=== PATIENT | female | born 1970 | race Caucasian/White ===

== ENCOUNTER 2021-05-31 21:38 | Emergency (ER) | payer MEDICARE, MEDICAID ==
--- NOTE | 2021-05-31 22:13 | EDM.PDOC ---
ED HPI GENERAL MEDICAL PROBLEM - General Chief Complaint: Abdominal Pain Stated Complaint: R SIDE ABDOMINAL PAIN Time Seen by Provider: 05/31/21 22:13 - History of Present Illness INITIAL COMMENTS - FREE TEXT/NARRATIVE: 50-year-old female presents the emergency room with abdominal pain. Patient has had several days a worsening abdominal pain. The pain seems to be in the right side of her abdomen. She is quite nauseated minimal vomiting she said diarrhea with this. Yesterday she attempted to go to [place] to have Thanksgiving with the family. Heading down there they stopped and emergency room she was tested for Covid found to be negative her evaluation of the emergency room was unrevealing I am not entirely sure exactly how big of the work-up she had done. Pain is mostly on the right side. She had a history of a cholecystectomy she still has her appendix. She denies any blood in her stool but has had loose stools. Right Abdomen Pain Score (Numeric/FACES): 10 - Related Data Allergies Allergy/AdvReac Type Severity Reaction Status Date / Time caffeine Allergy Severe Nausea and Verified 05/31/21 22:03 Vomiting codeine Allergy Severe Hives Verified 05/31/21 22:03 egg Allergy Severe Hives Verified 05/31/21 22:03 morphine Allergy Severe Hives Verified 05/31/21 22:03 Home Meds: Home Meds ARIPiprazole [Aripiprazole] 0 mg PO DAILY 05/31/21 [History] FLUoxetine HCl [Prozac] 40 mg PO DAILY 05/31/21 [History] Omeprazole 20 mg PO DAILY 05/31/21 [History] Pregabalin [Lyrica] 0 mg PO DAILY 05/31/21 [History] ED ROS GENERAL - Review of Systems Review Of Systems: See Below Constitutional: Reports: No Symptoms HEENT: Reports: No Symptoms Respiratory: Reports: No Symptoms Cardiovascular: Reports: No Symptoms GI/Abdominal: Reports: Abdominal Pain, Anorexia, Diarrhea, Decreased Appetite, Nausea, Vomiting. Denies: Black Stool, Bloody Stool : Reports: No Symptoms Musculoskeletal: Reports: No Symptoms Skin: Reports: No Symptoms Neurological: Reports: No Symptoms Psychiatric: Reports: No Symptoms ED EXAM, GENERAL - Physical Exam Exam: See Below Exam Limited By: No Limitations General Appearance: Alert, Moderate Distress (From anxiety and pain) Head: Atraumatic, Normocephalic Neck: Normal Inspection, Supple, Non-Tender, Full Range of Motion Respiratory/Chest: No Respiratory Distress, Lungs Clear, Normal Breath Sounds Cardiovascular: Regular Rate, Rhythm, No Edema, No Murmur GI/Abdominal: Normal Bowel Sounds, Soft, Tender (Heart tenderness on the right side she has rebound tenderness on the left radiating to the right.) Back Exam: Normal Inspection, CVA Tenderness (L), CVA Tenderness (R) #1 Interpretation EKG Date: 05/31/21 Rhythm: Other (Sinus arrhythmia) [place]: Normal P-Wave: Present QRS: Normal ST-T: Other (Lateral lead ST depression nondiagnostic) QT: Normal Comparison: NA - No Prior EKG EKG Interpretation Comments: Abnormal EKG Course - Vital Signs Last Recorded V/S: Last Vital Signs Temp 36.4 C 05/31/21 21:56 Pulse 52 L 05/31/21 21:56 Resp 20 05/31/21 21:56 BP 155/79 H 05/31/21 21:56 Pulse Ox 100 05/31/21 21:56 - Orders/Labs/Meds Orders: Active Orders 24 hr Category Date Time Status Abdomen Pelvis w Cont [CT] Stat Exams 05/31/21 22:23 Taken Lactated Ringers [Ringers, Lactated] 1,000 ml Med 05/31/21 22:30 Active IV ASDIRECTED Medication Orders Lactated Ringer's (Ringers, Lactated) 1,000 mls @ 125 mls/hr IV ASDIRECTED YEYO Last Admin: 05/31/21 23:47 Dose: 125 mls/hr Documented by: [facility] Labs: Laboratory Tests 05/31/21 05/31/21 05/31/21 Range/Units 22:37 22:37 22:40 WBC 9.54 (3.98-10.04) K/mm3 RBC 4.42 (3.98-5.22) M/mm3 Hgb 13.2 (11.2-15.7) gm/dl Hct 40.5 (34.1-44.9) % MCV 91.6 (79.4-94.8) fl MCH 29.9 (25.6-32.2) pg MCHC 32.6 (32.2-35.5) g/dl RDW Std Deviation 46.1 (36.4-46.3) fL Plt Count 126 L (182-369) K/mm3 MPV 10.9 (9.4-12.3) fl Neutrophils % (Manual) 88 H (40-60) % Band Neutrophils % 0 (0-10) % Lymphocytes % (Manual) 11 L (20-40) % Atypical Lymphs % 0 % Monocytes % (Manual) 1 L (2-10) % Eosinophils % (Manual) 0 L (0.7-5.8) % Basophils % (Manual) 0 L (0.1-1.2) Platelet Estimate Decreased Plt Morphology Comment See note RBC Morph Comment Normal Sodium 141 (136-145) mEq/L Potassium 3.4 L (3.5-5.1) mEq/L Chloride 104 (98-107) mEq/L Carbon Dioxide 24 (21-32) mEq/L Anion Gap 16.4 H (5-15) BUN 11 (7-18) mg/dL Creatinine 1.0 (0.55-1.02) mg/dL Est Cr Clr Drug Dosing 53.23 mL/min Estimated GFR (MDRD) 59 (>60) mL/min BUN/Creatinine Ratio 11.0 L (14-18) Glucose 141 H (70-99) mg/dL Calcium 9.6 (8.5-10.1) mg/dL Total Bilirubin 0.4 (0.2-1.0) mg/dL AST 20 (15-37) U/L ALT 29 (14-59) U/L Alkaline Phosphatase 88 (46-116) U/L Total Protein 7.6 (6.4-8.2) g/dl Albumin 4.0 (3.4-5.0) g/dl Globulin 3.6 gm/dL Albumin/Globulin Ratio 1.1 (1-2) Lipase 111 (73-393) U/L Urine Color Yellow (Yellow) Urine Appearance Clear (Clear) Urine pH >=9.0 H (5.0-8.0) Ur Specific [place] 1.020 (1.005-1.030) Urine Protein Negative (Negative) Urine Glucose (UA) Negative (Negative) Urine Ketones 2+ H (Negative) Urine Occult Blood Negative (Negative) Urine Nitrite Negative (Negative) Urine Bilirubin Negative (Negative) Urine Urobilinogen 0.2 (0.2-1.0) Ur Leukocyte Esterase Negative (Negative) Urine HCG, Qual (NEGATIVE) 05/31/21 Range/Units 22:40 WBC (3.98-10.04) K/mm3 RBC (3.98-5.22) M/mm3 Hgb (11.2-15.7) gm/dl Hct (34.1-44.9) % MCV (79.4-94.8) fl MCH (25.6-32.2) pg MCHC (32.2-35.5) g/dl RDW Std Deviation (36.4-46.3) fL Plt Count (182-369) K/mm3 MPV (9.4-12.3) fl Neutrophils % (Manual) (40-60) % Band Neutrophils % (0-10) % Lymphocytes % (Manual) (20-40) % Atypical Lymphs % % Monocytes % (Manual) (2-10) % Eosinophils % (Manual) (0.7-5.8) % Basophils % (Manual) (0.1-1.2) Platelet Estimate Plt Morphology Comment RBC Morph Comment Sodium (136-145) mEq/L Potassium (3.5-5.1) mEq/L Chloride (98-107) mEq/L Carbon Dioxide (21-32) mEq/L Anion Gap (5-15) BUN (7-18) mg/dL Creatinine (0.55-1.02) mg/dL Est Cr Clr Drug Dosing mL/min Estimated GFR (MDRD) (>60) mL/min BUN/Creatinine Ratio (14-18) Glucose (70-99) mg/dL Calcium (8.5-10.1) mg/dL Total Bilirubin (0.2-1.0) mg/dL AST (15-37) U/L ALT (14-59) U/L Alkaline Phosphatase (46-116) U/L Total Protein (6.4-8.2) g/dl Albumin (3.4-5.0) g/dl Globulin gm/dL Albumin/Globulin Ratio (1-2) Lipase (73-393) U/L Urine Color (Yellow) Urine Appearance (Clear) Urine pH (5.0-8.0) Ur Specific [place] (1.005-1.030) Urine Protein (Negative) Urine Glucose (UA) (Negative) Urine Ketones (Negative) Urine Occult Blood (Negative) Urine Nitrite (Negative) Urine Bilirubin (Negative) Urine Urobilinogen (0.2-1.0) Ur Leukocyte Esterase (Negative) Urine HCG, Qual Negative (NEGATIVE) Meds: Medications Generic Name Dose Route Start Last Admin Trade Name Ann PRN Reason Stop Dose Admin Lactated Ringer's 1,000 mls @ 125 mls/hr 05/31/21 22:30 05/31/21 23:47 Ringers, Lactated IV 125 mls/hr ASDIRECTED YEYO Administration Discontinued Medications Generic Name Dose Route Start Last Admin Trade Name Ann PRN Reason Stop Dose Admin Diatrizoate Meglum/Diatrizoate Sod 120 ml 05/31/21 23:08 06/01/21 00:09 Diatrizoate Meglumine/Diatrizoate Sodium 37% 120 Ml Bottle PO 05/31/21 23:09 120 ml ONETIME ONE Administration Hydromorphone HCl 0.5 mg 05/31/21 22:21 05/31/21 22:43 Hydromorphone 0.5 Mg/0.5 Ml Syringe IVPUSH 05/31/21 22:22 0.5 mg ONETIME ONE Administration Lactated Ringer's 1,000 mls @ 999 mls/hr 05/31/21 22:21 05/31/21 22:43 Ringers, Lactated IV 05/31/21 23:21 999 mls/hr .BOLUS ONE Administration Iopamidol 100 ml 05/31/21 23:07 06/01/21 00:09 Iopamidol 612 Mg/Ml 100 Ml Bottle IVPUSH 05/31/21 23:08 100 ml ONETIME ONE Administration Ondansetron HCl 4 mg 05/31/21 22:21 05/31/21 22:43 Ondansetron 4 Mg/2 Ml Sdv IVPUSH 05/31/21 22:22 4 mg ONETIME ONE Administration Ondansetron HCl 4 mg 05/31/21 23:30 05/31/21 23:38 Ondansetron 4 Mg/2 Ml Sdv IVPUSH 05/31/21 23:31 4 mg ONETIME ONE Administration Potassium Chloride 40 meq 06/01/21 02:22 Potassium Chloride 20 Meq Tab.Er PO 06/01/21 02:23 ONETIME ONE Sodium Chloride 10 ml 05/31/21 23:07 06/01/21 00:09 Sodium Chloride 0.9% 10 Ml Sdv FLUSH 05/31/21 23:08 10 ml ONETIME ONE Administration - Re-Assessments/Exams Free Text/Narrative Re-Assessment/Exam: 06/01/21 02:32 Laboratory evaluation trying to work-up this abdominal pain is fairly nonspecific her potassium is a little low at 3.4 give her 40 mEq of p.o. potassium. Went ahead and ordered a abdomen pelvis CT this was nondiagnostic however it was noted that she has bilateral ovarian cysts was recommended that these get further evaluated to better understand the etiology via ultrasound as an outpatient. I discussed the above findings with the patient and she agrees to go home and will follow up with her OB and her regular healthcare provider in [place]. I will discharge her with some [place] from the machine out in the waiting room #20 1 or 2 every 6 hours as needed and Zofran 4 mg 1 every 6 hours #10 Departure - Departure Time of Disposition: 02:36 Disposition: Home, Self-Care 01 Clinical Impression: Abdominal pain of unknown cause, Bilateral ovarian cysts - Discharge Information Referrals: Ava Stevenson, USER EXPERIENCE DEVELOPER [Primary Care Provider] - Forms: ED Department Discharge Additional Instructions: Return to the emergency room with any questions problems or worsening symptoms. Return in 24 hours if not improving. Return sooner if getting worse. On your CAT scan evaluation you have ovarian cyst on both sides it is recommended that you get a pelvic ultrasound done to further assess these. You can follow-up with your regular healthcare provider or your SOFTWARE ENGINEERING SPECIALIST for this. For your pain I given you prescription for hydrocodone you may take 1 or 2 every 6 hours as needed for pain. Allow 12 hours after using this medication before driving or returning to work. For nausea and vomiting not given you some Zofran you may use 1 every 6 hours as needed for nausea or vomiting this will dissolve on or under your tongue without difficulty. Follow-up with 1 of your healthcare providers early this coming week for follow- up. Sepsis Event Note (ED) - Focused Exam Vital Signs: Vital Signs Temp Pulse Resp BP Pulse Ox 05/31/21 21:56 36.4 C 52 L 20 155/79 H 100 - My Orders Last 24 Hours: My Active Orders 05/31/21 22:23 Abdomen Pelvis w Cont [CT] Stat 05/31/21 22:30 Lactated Ringers [Ringers, Lactated] 1,000 ml IV ASDIRECTED - Assessment/Plan Last 24 Hours: My Active Orders 05/31/21 22:23 Abdomen Pelvis w Cont [CT] Stat 05/31/21 22:30 Lactated Ringers [Ringers, Lactated] 1,000 ml IV ASDIRECTED
[2021-05-31] MEDS ORDERED: Ondansetron 4 MG/2 ML SDV IVPUSH ONE ×2 (22:21→23:30)
[2021-05-31] MEDS ORDERED: HYDROmorphone 0.5 MG/0.5 ML Syringe IVPUSH ONE (22:21)
[2021-05-31] MEDS ORDERED: Lactated Ringers 1,000 ML IV ONE (22:21)
[2021-05-31] MEDS ORDERED: Lactated Ringers 1,000 ML IV SCH (22:30)
[2021-05-31] MEDS ORDERED: Sodium Chloride 0.9% 10 ML SDV FLUSH ONE (23:07)
[2021-05-31] MEDS ORDERED: Iopamidol 612 MG/ML 100 ML Bottle IVPUSH ONE (23:07)
[2021-05-31] MEDS ORDERED: Diatrizoate Meglumine/Diatrizoate Sodium 37% 120 ML Bottle PO ONE (23:08)
[2021-06-01] MEDS ORDERED: Potassium Chloride 20 MEQ Tab.ER PO ONE (02:22)
--- NOTE | 2021-06-01 07:41 | CT ---
CT abdomen and pelvis Technique: Multiple axial sections were obtained from above the dome of the diaphragm inferiorly through the pubic symphysis. Intravenous and oral contrast was utilized. Delayed images were obtained through the bladder. Reconstructed coronal and sagittal images were also obtained. Comparison: No prior abdominal imaging is available. Findings: Visualized lung bases show nothing acute. Liver contains no focal parenchymal abnormality. Surgical clips are seen from prior cholecystectomy. Spleen size is normal. Adrenal glands show no nodule. Pancreas appears within normal limits. Kidneys show symmetric contrast enhancement. No hydronephrosis or mass is seen. Abdominal aorta shows no aneurysm. No retroperitoneal adenopathy or mesenteric abnormalities are seen. Appendix is seen which is normal. No pelvic mass or adenopathy is noted. Cyst is noted within the left ovary measuring 2.8 cm. Cyst is also noted within the right ovary measuring 2.7 cm. No free fluid or inflammatory change is seen. No discrete bowel dilatation or bowel wall thickening is noted. Delayed images show contrast within the distal ureters and the bladder. Bone window settings were reviewed which show prior surgery at L5-S1. There is an intrathecal electrostimulating device terminating within the lower thoracic spine. Impression: 1. Spine findings as noted above which are chronic. 2. Cyst within each ovary which are most likely incidental. 3. Nothing acute is appreciated on CT study of the abdomen and pelvis. Diagnostic code #2 I agree with preliminary report from [facility], finalized on 06/01/21, 1:52 AM SAFETY EQUIPMENT TESTING SPECIALIST, code 1
== END 2021-06-01 06:00 | disposition home or self-care (01) ==
LOC: JD.ED 21:38
DX: N83.201 Unspecified ovarian cyst, right side (principal); N83.202 Unspecified ovarian cyst, left side; R94.31 Abnormal electrocardiogram [ECG] [EKG]; Z88.5 Allergy status to narcotic agent; Z88.8 Allergy status to other drugs, medicaments and biological substances; Z91.012 Allergy to eggs
CPT/HCPCS: 36415; 74177; 74177-26; 80053; 81003; 81025; 83690; 85007; 85027; 93005; 96374; 96375; 96376; 99284-25; A9270-GY; J1170; J2405; J7120; Q9963; Q9967

== ENCOUNTER 2021-09-24 07:18 | Day surgery (SDC) | payer MEDICARE, MEDICAID ==
[~2021-09-24 07:18] MED LIST: Lactated Ringers 1,000 ML IV SCH; Lidocaine 1%/Sod Bicarbonate in NS 8.4% 1 ML Syringe IDERM PRN; Sodium Chloride 0.9% 10 ML Syringe FLUSH PRN; Sodium Chloride 0.9% 10 ML Syringe FLUSH SCH
[2021-09-24] MEDS ORDERED: Rocuronium 50 MG/5 ML Vial ONE ×2 (07:21→08:32)
[2021-09-24] MEDS ORDERED: Lidocaine 1% 5 ML VIAL ONE (07:21)
[2021-09-24] MEDS ORDERED: fentaNYL 250 MCG/5 ML SDV ONE (07:22)
[2021-09-24] MEDS ORDERED: Midazolam 1 MG/ML 2 ML SDV ONE (07:22)
[2021-09-24] MEDS ORDERED: Propofol 200 MG/20 ML SDV ONE (07:22)
[2021-09-24] MEDS ORDERED: ceFAZolin 1 GM Vial ONE (07:29)
[2021-09-24] MEDS ORDERED: Bupivacaine 0.5% 30 ML SDV ONE (07:31)
[2021-09-24] MEDS: Lidocaine 1% with EPINEPHrine 1:100,000 20 ML MDV ONE ×2 (08:32→10:58)
[2021-09-24] MEDS ORDERED: ePHEDrine 50 MG/ML SDV ONE (08:32)
[2021-09-24] MEDS ORDERED: Ondansetron 4 MG/2 ML SDV ONE (09:02)
[2021-09-24] MEDS ORDERED: Ondansetron 4 MG/2 ML SDV IVPUSH PRN (09:44)
[2021-09-24] MEDS ORDERED: HYDROmorphone 0.5 MG/0.5 ML Syringe IVPUSH PRN (09:44)
[2021-09-24] MEDS ORDERED: fentaNYL 100 MCG/2 ML SDV IVPUSH PRN (09:44)
[2021-09-24] MEDS ORDERED: Dexamethasone 4 MG/ML 5 ML MDV ONE (09:47)
[2021-09-24] MEDS ORDERED: Acetaminophen/oxyCODONE 325-5 MG Tab PO ONE ×2 (11:05→11:15)
== END 2021-09-24 13:10 | disposition home or self-care (01) ==
LOC: JD.SDS 07:18
PROVIDERS: ATTEND Obstetrics & Gynecology
DX: N80.0 Endometriosis of uterus (principal); N83.8 Other noninflammatory disorders of ovary, fallopian tube and broad ligament; D27.0 Benign neoplasm of right ovary; F32.A Depression, unspecified; F41.0 Panic disorder [episodic paroxysmal anxiety]; F43.10 Post-traumatic stress disorder, unspecified; Z91.018 Allergy to other foods; K21.9 Gastro-esophageal reflux disease without esophagitis; H54.7 Unspecified visual loss; Z88.5 Allergy status to narcotic agent; Z91.012 Allergy to eggs; Z88.6 Allergy status to analgesic agent; Z90.49 Acquired absence of other specified parts of digestive tract; Z98.890 Other specified postprocedural states; Z98.51 Tubal ligation status; Z79.899 Other long term (current) drug therapy; Z87.891 Personal history of nicotine dependence; Z86.73 Personal history of transient ischemic attack (TIA), and cerebral infarction without residual deficits
CPT/HCPCS: 36415; 58552; 80048; 85025; 86850; 86900; 86901; A9270; J0690; J1100; J2250; J2405; J2704; J2710; J3010; J3490; J7120; 00944

== ENCOUNTER 2022-01-01 11:13 | Emergency (ER) | payer MEDICARE, MEDICAID ==
[2022-01-01] MEDS ORDERED: fentaNYL 100 MCG/2 ML SDV IVPUSH ONE (11:54)
[2022-01-01 12:24] LABS: ESTIMATED GFR 77 mL/min (>60)
[2022-01-01] MEDS ORDERED: Sodium Chloride 0.9% 10 ML Syringe FLUSH PRN (12:41)
[2022-01-01] MEDS ORDERED: Iopamidol 755 Mg/ML 100 ML Bottle IVPUSH ONE (12:41)
[2022-01-01] MEDS ORDERED: Sodium Chloride 0.9% 100 ML IV SCH (12:45)
[2022-01-01] MEDS ORDERED: Ketorolac 30 MG/ML SDV IVPUSH ONE (14:48)
== END 2022-01-01 17:31 | disposition home or self-care (01) ==
LOC: JD.ED 11:13
DX: R07.89 Other chest pain (principal); K21.9 Gastro-esophageal reflux disease without esophagitis; Z88.5 Allergy status to narcotic agent; Z91.048 Other nonmedicinal substance allergy status
CPT/HCPCS: 36415; 71045; 71275; 80053; 81001; 83735; 84443; 84484; 85025; 85379; 86140; 87086; 93005; 96374; 96375; 99285; J1885; J3010; J3490; Q9967; 93010; 99284